=== PATIENT | female | born 1975 | race Caucasian/White ===

== ENCOUNTER 2017-02-27 07:34 | Day surgery (SDC) | payer OTHER, SELFPAY ==
[~2017-02-27 07:34] MED LIST: IBUPROFEN200 M2 PO; PRILOSEC OTC20 M1 PO; WOMEN'S BIOMUL1 EACH PO
[2017-02-27 09:25] LABS: BASO % 0.6 % (0-2); EOS % 0.7 % (0-7); EOSINOPHIL ABSOLUTE COUNT 0.1 tho/cmm (0.0-0.7); HCT-HEMATOCRIT 38.1 % (34.0-49.0); HGB-HEMOGLOBIN 12.9 gm/dl (12.0-15.5); IMMATURE GRANULOCYTES ABSOLUTE 0.01 tho/cmm (0-0.03); IMMATURE GRANULOCYTES PERCENT 0.1 % (0-0.3); LYMPH % 14.8 % (20-45); MCH (MEAN CORPUSCULAR HGB) 31.4 pg (28.0-32.0); MCHC MEAN CORPUSCULAR HGB CONC 33.9 % (32.0-36.0); MCV (MEAN CELL VOLUME) 92.7 fl (82.0-96.0); MONO % 7.6 % (0-12); MONOCYTE ABSOLUTE COUNT 0.5 tho/cmm (0.0-1.2); NEUTROPHIL ABSOLUTE COUNT 5.3 tho/cmm (1.6-8.0); NEUTROPHIL-AUTOMATED 5.3 tho/cmm (1.6-8.0); NEUTROPHILS % 76.2 % (40-80); PLATELET COUNT 207 tho/cmm (150-450); RED BLOOD COUNT 4.11 mil/cmm (4.00-5.20); RED CELL DISTRIBUTION WIDTH 13.7 % (12.4-16.4)
[2017-02-27 09:36] LABS: ANION GAP 12 mmol/L (0-20); BLOOD UREA NITROGEN 18 mg/dl (6-24); CALCIUM 10.2 mg/dl (8.5-10.5); CARBON DIOXIDE-VENOUS 26 mmol/L (22-32); CHLORIDE 106 mmol/l (96-110); CREATININE 0.78 mg/dl (0.50-1.10); GLUCOSE 113 mg/dL (70-110); POTASSIUM 3.9 mmol/L (3.7-5.1); SODIUM 140 mmol/L (135-145); eGFR VALUE FOR BLACK >90 mL/Min
[2017-06-15] MEDS ORDERED: CLARITIN10 M6 PO (10:36)
[2017-06-15] MEDS ORDERED: VITAMIN C500 M3 PO (10:37)
[2017-06-15] MEDS ORDERED: VITAMIN D31000 UNI3 PO (10:37)
[2017-06-15] MEDS ORDERED: CEFDINIR300 M1 PO (14:52)
[2017-06-22] MEDS ORDERED: LOMOTIL 2.5-0.1 EACH PO (21:02)
[2017-06-22] MEDS ORDERED: TYLENOL WITH C1 EACH PO (21:02)
[2017-06-22] MEDS ORDERED: ZOFRAN8 M1 PO (21:03)
[2017-06-22] MEDS ORDERED: DEXAMETHASONE4 M1 PO (21:04)
[2017-06-22] MEDS ORDERED: ATIVAN0.5 M1 PO (21:15)
[2017-06-22] MEDS ORDERED: POTASSIUM CHLO20 ME3 PO (22:24)
[2017-06-22] MEDS ORDERED: LEVAQUIN750 M1 PO (22:24)
[2017-06-27] MEDS ORDERED: LEVAQUIN750 M1 PO (15:39)
[2017-06-27] MEDS ORDERED: POTASSIUM CHLO20 ME3 PO (15:40)
[2017-06-27] MEDS ORDERED: VANCOCIN HCL125 MG PO (16:00)
[2017-06-27] MEDS ORDERED: FLAGYL500 M1 PO (16:00)
[2017-06-30] MEDS ORDERED: FLAGYL500 M1 PO (11:48)
== END 2017-02-27 14:00 ==
LOC: MAMMO 07:34 → SHSA 08:57 → ORW 10:02 → PACU 11:07 → SHSA 12:15
PROVIDERS: Specialist
PROC: 0HBU0ZZ Excision of Left Breast, Open Approach (ICD-10-PCS; principal; 2017-02-27)
DX: C50.412 Malignant neoplasm of upper-outer quadrant of left female breast (principal); J45.909 Unspecified asthma, uncomplicated; K21.9 Gastro-esophageal reflux disease without esophagitis; Z79.899 Other long term (current) drug therapy; Z88.7 Allergy status to serum and vaccine; Z80.3 Family history of malignant neoplasm of breast; Z98.890 Other specified postprocedural states
CPT/HCPCS: G0204; J0690; J2250; J3010

== ENCOUNTER 2017-03-19 08:17 | Day surgery (SDC) | payer OTHER, SELFPAY ==
[2017-06-15] MEDS ORDERED: CLARITIN10 M6 PO (10:36)
[2017-06-15] MEDS ORDERED: VITAMIN D31000 UNI3 PO (10:37)
[2017-06-15] MEDS ORDERED: VITAMIN C500 M3 PO (10:37)
[2017-06-15] MEDS ORDERED: CEFDINIR300 M1 PO (14:52)
[2017-06-22] MEDS ORDERED: LOMOTIL 2.5-0.1 EACH PO (21:02)
[2017-06-22] MEDS ORDERED: TYLENOL WITH C1 EACH PO (21:02)
[2017-06-22] MEDS ORDERED: ZOFRAN8 M1 PO (21:03)
[2017-06-22] MEDS ORDERED: DEXAMETHASONE4 M1 PO (21:04)
[2017-06-22] MEDS ORDERED: ATIVAN0.5 M1 PO (21:15)
[2017-06-22] MEDS ORDERED: POTASSIUM CHLO20 ME3 PO (22:24)
[2017-06-22] MEDS ORDERED: LEVAQUIN750 M1 PO (22:24)
[2017-06-27] MEDS ORDERED: LEVAQUIN750 M1 PO (15:39)
[2017-06-27] MEDS ORDERED: POTASSIUM CHLO20 ME3 PO (15:40)
[2017-06-27] MEDS ORDERED: VANCOCIN HCL125 MG PO (16:00)
[2017-06-27] MEDS ORDERED: FLAGYL500 M1 PO (16:00)
[2017-06-30] MEDS ORDERED: FLAGYL500 M1 PO (11:48)
== END 2017-03-19 12:45 ==
LOC: SHSC 08:17 → ORW 09:22 → SHSC 10:24
PROC: 0JH60XZ Insertion of Tunneled Vascular Access Device into Chest Subcutaneous Tissue and Fascia, Open Approach (ICD-10-PCS; principal; 2017-03-19)
PROC: 02HV33Z Insertion of Infusion Device into Superior Vena Cava, Percutaneous Approach (ICD-10-PCS; 2017-03-19)
PROC: B548ZZA Ultrasonography of Superior Vena Cava, Guidance (ICD-10-PCS; 2017-03-19)
DX: C50.912 Malignant neoplasm of unspecified site of left female breast (principal); K21.9 Gastro-esophageal reflux disease without esophagitis; Z88.8 Allergy status to other drugs, medicaments and biological substances; Z98.890 Other specified postprocedural states
CPT/HCPCS: C1788; J0690; J1644; J7050